=== PATIENT | male | born 1970 | race Hispanic/Latino ===

== ENCOUNTER 2017-10-12 01:54 | Emergency (ER) | payer MEDICARE ==
[~2017-10-12 01:54] MED LIST: ALBU8.5H8 IH; ASPI-555 PO; DEXT30TA10 PO; DOCU100C19 PO; ELVI1TAB3 PO; ERGO500014 PO; FENO145T37 PO; FLUT1DIS3 IH; FURO20TA4 PO; INSU100I13 SQ; LEVO88TA7 PO; LISI40TA4 PO; LORA-705 PO; PANT40TA25 PO; ROSU10TA PO; SITA1TAB6 PO; SULF1TAB3 PO; TIOT4MIS5 PUFF
== END 2017-10-12 02:37 | disposition home or self-care (01) ==
LOC: EDH 01:54
DX: E11.65 Type 2 diabetes mellitus with hyperglycemia (principal); J44.9 Chronic obstructive pulmonary disease, unspecified; Z21 Asymptomatic human immunodeficiency virus [HIV] infection status
CPT/HCPCS: 82948

== ENCOUNTER 2018-06-30 13:05 | Emergency (ER) | payer MEDICARE ==
[~2018-06-30 13:05] MED LIST changes: +DOCU-282 PO; -DOCU100C19 PO
[2018-06-30] MEDS ORDERED: HYOSCYAMINE SULFATE 0.125 MG TAB.SUBL SL ONE (13:51)
[2018-06-30] MEDS ORDERED: SODIUM CHLORIDE 0.9% 1000ML 1,000 ML IV ONE (13:51)
[2018-06-30] MEDS ORDERED: ONDANSETRON HCL 4 MG/2 ML VIAL ONE (13:51)
[2018-06-30] MEDS ORDERED: MORPHINE SULFATE 4 MG/1ML SYG ONE (13:52)
[2018-06-30 13:55] LABS: BASOPHILS % (AUTO) 0.5 % (0.0-5.0); EOSINOPHILS % (AUTO) 5.1 % (0.0-8.0); LYMPHOCYTES % (AUTO) 26.4 % (21.0-51.0); MEAN CORPUSCULAR HEMOGLOBIN 28.6 pg (27.0-33.0); MEAN CORPUSCULAR HGB CONC 32.7 g/dL (32.0-36.0); MEAN CORPUSCULAR VOLUME 87.3 fL (79-99); MONOCYTES % (AUTO) 8.3 % (3.0-13.0); NEUTROPHILS % (AUTO) 59.7 % (40.0-77.0); PLATELET COUNT (AUTO) 233 K/uL (130-400); RED BLOOD CELL COUNT(AUTO) 5.04 MIL/uL (4.50-6.20); RED CELL DISTRIBUTION WIDTH 14.4 % (11.0-15.5); WHITE BLOOD COUNT (AUTO) 10.4 K/uL (4.8-10.8)
[2018-06-30 14:01] LABS: CREATININE 1.1 mg/dL (0.5-1.5); POTASSIUM 5.1 mmol/L (3.5-5.1)
[2018-06-30 14:05] LABS: ALBUMIN 4.6 g/dL (3.5-5.0); BILIRUBIN,TOTAL 0.9 mg/dL (0.2-1.0); TOTAL PROTEIN, SERUM 9.2 g/dL (6.0-8.3)
[2018-06-30 14:24] LABS: APPEARANCE,URINE Clear (CLEAR); BILIRUBIN,URINE Negative (NEGATIVE); COLOR,URINE Dark Yellow (YELLOW); GLUCOSE, URINE (UA) Negative (NEGATIVE); KETONES,URINE Trace mg/dL (NEGATIVE); LEUKOCYTE ESTERASE ,URINE Negative (NEGATIVE); NITRATE,URINE Negative (NEGATIVE); OCCULT BLOOD,URINE Negative (NEGATIVE); PROTEIN,URINE Negative (NEGATIVE)
[2018-06-30 14:32] LABS: AMPHET/METH SCREEN,URINE NEGATIVE (NEGATIVE); BARBITURATE SCREEN, URINE NEGATIVE (NEGATIVE); BENZODIAZEPINES SCREEN,URINE POSITIVE (NEGATIVE); CANNABINOID SCREEN,URINE NEGATIVE (NEGATIVE); COCAINE SCREEN,URINE POSITIVE (NEGATIVE); OPIATE SCREEN,URINE NEGATIVE (NEGATIVE); PHENCYCLIDINE SCREEN,URINE NEGATIVE (NEGATIVE)
== END 2018-06-30 18:00 | disposition home or self-care (01) ==
LOC: EDH 13:05
DX: R11.2 Nausea with vomiting, unspecified (principal); R19.7 Diarrhea, unspecified; F14.10 Cocaine abuse, uncomplicated; J45.909 Unspecified asthma, uncomplicated; J44.9 Chronic obstructive pulmonary disease, unspecified; E11.9 Type 2 diabetes mellitus without complications; Z72.0 Tobacco use; Z21 Asymptomatic human immunodeficiency virus [HIV] infection status
CPT/HCPCS: 36415; 80053; 80305; 81003; 82270; 83690; 85025; 87046; 87205; 87324; 96361; 96374; 96375; 99285; J2270; J2405; J7030

== ENCOUNTER 2023-10-27 00:23 | Emergency (ER) | payer OTHER, MEDICARE ==
[~2023-10-27] VITALS: Ht 177.8 cm; Wt 85.7 kg
[~2023-10-27 00:23] MED LIST changes: +ASPI-1443 PO; -ASPI-555 PO; +ASPI-556 PO; +ATOR40TA69 PO; +CETI10TA57 PO; +CLOP75TA32 PO; +ERGO500093 PO; +FENO145T26 PO; -FENO145T37 PO; +FERR-72 PO; +FLUT1BLS3 IH; +FOLI0.8C PO; +FURO40TA5 PO; -LISI40TA4 PO; +LISI40TA9 PO; +LORA-699 PO; -LORA-705 PO; +MECO10005 PO; +METO25TA6 PO; -PANT40TA25 PO; +PANT40TA54 PO; -ROSU10TA PO; +ROSU10TA22 PO
[2023-10-27 01:04] LABS: BASOPHILS # (AUTO) 0.02 K/uL (0.00-0.20); BASOPHILS % (AUTO) 0.3 % (0.0-5.0); EOSINOPHILS # (AUTO) 0.18 K/uL (0.00-0.70); EOSINOPHILS % (AUTO) 2.5 % (0.0-8.0); HEMATOCRIT 34.6 % (42-54); IMMATURE GRANULOCYTE ABSOLUTE 0.02 K/uL (0-1); LYMPHOCYTES # (AUTO) 2.2 K/uL (1.0-4.8); LYMPHOCYTES % (AUTO) 31.3 % (21.0-51.0); MEAN CORPUSCULAR HEMOGLOBIN 29.2 pg (27.0-33.0); MEAN CORPUSCULAR HGB CONC 33.8 g/dL (32.0-36.0); MEAN CORPUSCULAR VOLUME 86.3 fL (79-99); MONOCYTES # (AUTO) 0.4 K/uL (0.1-1.0); MONOCYTES % (AUTO) 6.1 % (3.0-13.0); NEUTROPHILS # (AUTO) 4.2 K/uL (1.8-7.7); NEUTROPHILS % (AUTO) 59.5 % (40.0-77.0); PLATELET COUNT (AUTO) 141 K/uL (130-400); RED BLOOD CELL COUNT(AUTO) 4.01 MIL/uL (4.50-6.20); RED CELL DISTRIBUTION WIDTH 14.4 % (11.0-15.5); WHITE BLOOD COUNT (AUTO) 7.1 K/uL (4.8-10.8)
[2023-10-27 01:14] LABS: CARBON DIOXIDE 23 mmol/L (21-32); CHLORIDE 106 mmol/L (101-111); CREATININE 1.2 mg/dL (0.5-1.5); GLOMERULAR FILTR. RATE CALC 73 mL/min (>90); GLUCOSE,RANDOM 86 mg/dL (70-105); POTASSIUM 3.7 mmol/L (3.5-5.1); SODIUM SERUM 142 mmol/L (136-145); UREA NITROGEN, BLOOD 12 mg/dL (7-18)
[2023-10-27 01:18] LABS: ALANINE AMINOTRANSFERASE 15 U/L (12-78); AMMONIA 17 umol/L (11-32); ASPARTATE AMINOTRANSFERASE 9 U/L (10-37); BILIRUBIN,TOTAL 0.6 mg/dL (0.2-1.0); TOTAL PROTEIN, SERUM 6.3 g/dL (6.0-8.3)
[2023-10-27 01:22] LABS: ALCOHOL, BLOOD < 3 mg/dL (0-10)
[2023-10-27 03:26] VITALS: BP 116/68; PULSE 68; RESP 17; O2SAT 98
[2023-10-27 03:37] LABS: AMPHET/METH SCREEN,URINE NEGATIVE (NEGATIVE); BARBITURATE SCREEN, URINE NEGATIVE (NEGATIVE); BENZODIAZEPINES SCREEN,URINE NEGATIVE (NEGATIVE); CANNABINOID SCREEN,URINE NEGATIVE (NEGATIVE); COCAINE SCREEN,URINE NEGATIVE (NEGATIVE); OPIATE SCREEN,URINE NEGATIVE (NEGATIVE); PHENCYCLIDINE SCREEN,URINE NEGATIVE (NEGATIVE)
== END 2023-10-27 04:06 | disposition home or self-care (01) ==
LOC: EDH 00:23
DX: R55 Syncope and collapse (principal); I10 Essential (primary) hypertension; E11.9 Type 2 diabetes mellitus without complications; F41.9 Anxiety disorder, unspecified; F03.90 Unspecified dementia, unspecified severity, without behavioral disturbance, psychotic disturbance, mood disturbance, and anxiety; Z79.82 Long term (current) use of aspirin; Z79.899 Other long term (current) drug therapy; W18.39XA Other fall on same level, initial encounter; Y93.89 Activity, other specified; Y92.89 Other specified places as the place of occurrence of the external cause; Y99.8 Other external cause status
CPT/HCPCS: 36415; 70450; 80053; 80305; 82140; 84484; 85025; 93005

== ENCOUNTER 2023-11-13 10:27 | Emergency (ER) | payer OTHER, MEDICARE ==
[~2023-11-13] VITALS: Ht 165.1 cm; Wt 72.6 kg
[2023-11-13 10:50] LABS: BASOPHILS # (AUTO) 0.03 K/uL (0.00-0.20); BASOPHILS % (AUTO) 0.5 % (0.0-5.0); EOSINOPHILS # (AUTO) 0.15 K/uL (0.00-0.70); EOSINOPHILS % (AUTO) 2.3 % (0.0-8.0); HEMATOCRIT 35.3 % (42-54); IMMATURE GRANULOCYTE ABSOLUTE 0.02 K/uL (0-1); LYMPHOCYTES # (AUTO) 2.3 K/uL (1.0-4.8); LYMPHOCYTES % (AUTO) 34.8 % (21.0-51.0); MEAN CORPUSCULAR HEMOGLOBIN 29.2 pg (27.0-33.0); MEAN CORPUSCULAR HGB CONC 33.4 g/dL (32.0-36.0); MEAN CORPUSCULAR VOLUME 87.4 fL (79-99); MONOCYTES # (AUTO) 0.4 K/uL (0.1-1.0); MONOCYTES % (AUTO) 6.5 % (3.0-13.0); NEUTROPHILS # (AUTO) 3.6 K/uL (1.8-7.7); NEUTROPHILS % (AUTO) 55.6 % (40.0-77.0); PLATELET COUNT (AUTO) 134 K/uL (130-400); RED BLOOD CELL COUNT(AUTO) 4.04 MIL/uL (4.50-6.20); RED CELL DISTRIBUTION WIDTH 14.4 % (11.0-15.5); WHITE BLOOD COUNT (AUTO) 6.5 K/uL (4.8-10.8)
[2023-11-13 10:53] LABS: CREATININE 1.3 mg/dL (0.5-1.5); POTASSIUM 3.9 mmol/L (3.5-5.1)
[2023-11-13 11:25] LABS: RAPID GROUP A STREP negative (NEGATIVE)
[2023-11-13 11:35] LABS: COVID19 (SARS ANTIGEN RAPID) PRESUMPTIVE NEGATIVE (NEGATIVE); INFLUENZA TYPE A Negative For Type A (NEGATIVE); INFLUENZA TYPE B Negative For Type B (NEGATIVE)
[2023-11-13 11:40] LABS: APPEARANCE,URINE CLEAR (CLEAR); BILIRUBIN,URINE NEGATIVE (NEGATIVE); COLOR,URINE YELLOW (YELLOW); GLUCOSE, URINE (UA) NEGATIVE (NEGATIVE); KETONES,URINE 10 mg/dL (NEGATIVE); LEUKOCYTE ESTERASE ,URINE NEGATIVE Leu/uL (NEGATIVE); NITRATE,URINE NEGATIVE (NEGATIVE); OCCULT BLOOD,URINE NEGATIVE (NEGATIVE); PROTEIN,URINE NEGATIVE (NEGATIVE); UROBILINOGEN,URINE 3 mg/dL (0.2-1.0)
[2023-11-13 11:42] LABS: ADD UA MICROSCOPIC YES
[2023-11-13] MEDS: M.V.I. IV [ADULT] 10 ML, FOLIC ACID 1 MG, THIAMINE HCL 100 MG in 0.9%NACL 1000ML 1,000 ML IV ONE (11:45)
[2023-11-13 11:48] LABS: MUCUS,URINE RARE LPF (None Seen); SQUAMOUS EPITHELIAL CELL,UR RARE /HPF (0-2); WBC,URINE 0-1 /HPF (0-1)
[2023-11-13 14:33] VITALS: BP 125/75; PULSE 74; RESP 16; O2SAT 100
== END 2023-11-13 14:30 | disposition home or self-care (01) ==
LOC: EDH 10:27
DX: R53.1 Weakness (principal); Z20.822 Contact with and (suspected) exposure to COVID-19; Z79.82 Long term (current) use of aspirin; Z79.84 Long term (current) use of oral hypoglycemic drugs; Z79.899 Other long term (current) drug therapy; Z98.890 Other specified postprocedural states
CPT/HCPCS: 99285; 96365; 70450; 71045; 96366; 87426; 82550; 80048; 85025; 87880; 87420; 87804 ×2; 83605; 81001; 36415; J7030; J3411; J3490

== ENCOUNTER 2024-03-31 05:35 | Emergency (ER) | payer OTHER, MEDICARE ==
[~2024-03-31] VITALS: Ht 167.6 cm; Wt 80.3 kg
[2024-03-31] MEDS: LIDOCAINE HCL 2% VISCOUS 15 ML UDCUP PO ONE (05:56)
[2024-03-31] MEDS: PANTOPRAZOLE 40 MG/VIAL IVP ONE (05:56)
[2024-03-31] MEDS: ONDANSETRON 4MG INJ IVP ONE (05:57)
[2024-03-31] MEDS: LACTATED RINGERS 1000ML 1,000 ML IV ONE (05:58)
[2024-03-31] MEDS: MAG/ALUM/SIMETH 30 ML UDCUP PO ONE (05:58)
[2024-03-31 06:01] LABS: BASOPHILS # (AUTO) 0.03 K/uL (0.00-0.20); BASOPHILS % (AUTO) 0.2 % (0.0-5.0); EOSINOPHILS # (AUTO) 0.45 K/uL (0.00-0.70); EOSINOPHILS % (AUTO) 3.7 % (0.0-8.0); HEMATOCRIT 35.3 % (42-54); IMMATURE GRANULOCYTE ABSOLUTE 0.04 K/uL (0-1); LYMPHOCYTES # (AUTO) 2.7 K/uL (1.0-4.8); LYMPHOCYTES % (AUTO) 22.2 % (21.0-51.0); MEAN CORPUSCULAR HEMOGLOBIN 25.8 pg (27.0-33.0); MEAN CORPUSCULAR HGB CONC 31.4 g/dL (32.0-36.0); MEAN CORPUSCULAR VOLUME 82.1 fL (79-99); MONOCYTES # (AUTO) 0.8 K/uL (0.1-1.0); MONOCYTES % (AUTO) 6.1 % (3.0-13.0); NEUTROPHILS # (AUTO) 8.2 K/uL (1.8-7.7); NEUTROPHILS % (AUTO) 67.5 % (40.0-77.0); PLATELET COUNT (AUTO) 188 K/uL (130-400); RED CELL DISTRIBUTION WIDTH 16.4 % (11.0-15.5); WHITE BLOOD COUNT (AUTO) 12.2 K/uL (4.8-10.8)
[2024-03-31 06:11] LABS: POTASSIUM 3.7 mmol/L (3.5-5.1)
[2024-03-31 06:25] LABS: ALBUMIN 2.5 g/dL (3.5-5.0); BILIRUBIN,TOTAL 0.2 mg/dL (0.2-1.0); TOTAL PROTEIN, SERUM 6.3 g/dL (6.0-8.3)
[2024-03-31 08:17] LABS: APPEARANCE,URINE CLEAR (CLEAR); BILIRUBIN,URINE NEGATIVE (NEGATIVE); COLOR,URINE LIGHT-YELLOW (YELLOW); GLUCOSE, URINE (UA) NEGATIVE (NEGATIVE); KETONES,URINE NEGATIVE (NEGATIVE); LEUKOCYTE ESTERASE ,URINE NEGATIVE Leu/uL (NEGATIVE); NITRATE,URINE NEGATIVE (NEGATIVE); OCCULT BLOOD,URINE NEGATIVE (NEGATIVE); PH,URINE 6.5 (5.0-8.0); PROTEIN,URINE NEGATIVE (NEGATIVE)
[2024-03-31 08:18] LABS: AMPHET/METH SCREEN,URINE NEGATIVE (NEGATIVE); BARBITURATE SCREEN, URINE NEGATIVE (NEGATIVE); BENZODIAZEPINES SCREEN,URINE NEGATIVE (NEGATIVE); CANNABINOID SCREEN,URINE NEGATIVE (NEGATIVE); COCAINE SCREEN,URINE NEGATIVE (NEGATIVE); OPIATE SCREEN,URINE NEGATIVE (NEGATIVE); PHENCYCLIDINE SCREEN,URINE NEGATIVE (NEGATIVE)
[2024-03-31 08:23] LABS: ADD UA MICROSCOPIC YES
[2024-03-31 08:24] LABS: RBC,URINE 0-1 /HPF (0-1); SQUAMOUS EPITHELIAL CELL,UR RARE /HPF (0-2)
[2024-03-31 10:48] VITALS: BP 104/71; PULSE 72; RESP 20; O2SAT 99
== END 2024-03-31 10:48 | disposition home or self-care (01) ==
LOC: EDH 05:35
DX: R53.1 Weakness (principal); E11.9 Type 2 diabetes mellitus without complications; E78.00 Pure hypercholesterolemia, unspecified; I10 Essential (primary) hypertension; Z79.02 Long term (current) use of antithrombotics/antiplatelets; Z79.51 Long term (current) use of inhaled steroids; Z79.82 Long term (current) use of aspirin; Z79.899 Other long term (current) drug therapy
CPT/HCPCS: 99285; 82550; 84484; 80053; 80305; 83690; 85025; 81001; 36415; 70450; 72125; 96374; 96375; 93005; J7120; J2405; J2470

== ENCOUNTER 2024-05-14 00:13 | Inpatient (IN) | payer OTHER, MEDICARE ==
[~2024-05-14] VITALS: Ht 160 cm; Wt 86.2 kg
[2024-05-14] VITALS (10 sets, daily range): BP systolic 120–142; BP diastolic 79–89; PULSE 76–90; RESP 16–20; O2SAT 97–100
[2024-05-14 00:46] LABS: BASOPHILS # (AUTO) 0.03 K/uL (0.00-0.20); BASOPHILS % (AUTO) 0.4 % (0.0-5.0); EOSINOPHILS # (AUTO) 0.21 K/uL (0.00-0.70); EOSINOPHILS % (AUTO) 2.8 % (0.0-8.0); HEMATOCRIT 32.7 % (42-54); IMMATURE GRANULOCYTE ABSOLUTE 0.03 K/uL (0-1); LYMPHOCYTES # (AUTO) 2.6 K/uL (1.0-4.8); MEAN CORPUSCULAR HEMOGLOBIN 26.9 pg (27.0-33.0); MEAN CORPUSCULAR HGB CONC 32.1 g/dL (32.0-36.0); MEAN CORPUSCULAR VOLUME 83.8 fL (79-99); MONOCYTES # (AUTO) 0.6 K/uL (0.1-1.0); MONOCYTES % (AUTO) 7.7 % (3.0-13.0); NEUTROPHILS % (AUTO) 53.7 % (40.0-77.0); PLATELET COUNT (AUTO) 185 K/uL (130-400); RED CELL DISTRIBUTION WIDTH 18.3 % (11.0-15.5); WHITE BLOOD COUNT (AUTO) 7.5 K/uL (4.8-10.8)
[2024-05-14 01:02] LABS: CREATININE 1.1 mg/dL (0.5-1.3); POTASSIUM 3.3 mmol/L (3.5-5.1)
[2024-05-14 01:12] LABS: ALBUMIN 2.5 g/dL (3.5-5.0); BILIRUBIN,DIRECT 0.1 mg/dL (0.0-0.3); BILIRUBIN,TOTAL 0.2 mg/dL (0.2-1.0); TOTAL PROTEIN, SERUM 5.8 g/dL (6.0-8.3)
[2024-05-14] MEDS: 0.9%NACL 1000ML 1,000 ML IV ONE (01:25)
[2024-05-14] MEDS: POTASSIUM BICARB/CIT AC 25 MEQ TABLET.EFF PO ONE (03:37)
[2024-05-14] MEDS: dexaMETHasone SOD PHOSPHATE 4 MG/ML 1ML VIAL IV ONE (04:23)
[2024-05-14] MEDS ORDERED: LACTATED RINGERS IV ONE (06:30)
[2024-05-14] MEDS ORDERED: acetaMINOPHEN 325 MG TAB PO PRN (07:00)
[2024-05-14] MEDS ORDERED: DiphenhydrAMINE HCL 50 MG/ML VIAL IV PRN (07:00)
[2024-05-14] MEDS ORDERED: POTASSIUM CHLORIDE 20MEQ/100ML 100 ML IV PRN (07:00)
[2024-05-14] MEDS: INSULIN humuLIN R 100 UNIT/ML 3ML SQ SCH (07:30)
[2024-05-14 07:37] LABS: HEMOGLOBIN A1C 5.8 % (4.0-6.0)
[2024-05-14] MEDS: FAMOTIDINE 20MG TAB PO SCH (09:58)
[2024-05-14] MEDS: ENOXAPARIN SODIUM 40 MG/0.4 ML SYRINGE SQ SCH (09:59)
[2024-05-14] MEDS: IpraTROPium/alBUTERol SULFATE 3 ML SOLUTION IH SCH (11:18)
[2024-05-14 11:20] LABS: ADD UA MICROSCOPIC NO; APPEARANCE,URINE CLEAR (CLEAR); BILIRUBIN,URINE NEGATIVE (NEGATIVE); COLOR,URINE LIGHT-YELLOW (YELLOW); GLUCOSE, URINE (UA) NEGATIVE (NEGATIVE); KETONES,URINE NEGATIVE (NEGATIVE); LEUKOCYTE ESTERASE ,URINE NEGATIVE Leu/uL (NEGATIVE); NITRATE,URINE NEGATIVE (NEGATIVE); OCCULT BLOOD,URINE NEGATIVE (NEGATIVE); PH,URINE 7.5 (5.0-8.0); PROTEIN,URINE NEGATIVE (NEGATIVE); UROBILINOGEN,URINE 0.2 mg/dL (0.2-1.0)
[2024-05-14 11:22] LABS: AMPHET/METH SCREEN,URINE NEGATIVE (NEGATIVE); BARBITURATE SCREEN, URINE NEGATIVE (NEGATIVE); BENZODIAZEPINES SCREEN,URINE NEGATIVE (NEGATIVE); CANNABINOID SCREEN,URINE NEGATIVE (NEGATIVE); COCAINE SCREEN,URINE NEGATIVE (NEGATIVE); OPIATE SCREEN,URINE NEGATIVE (NEGATIVE); PHENCYCLIDINE SCREEN,URINE NEGATIVE (NEGATIVE)
[2024-05-14] MEDS ORDERED: TERB250T89 PO (11:54)
[2024-05-14] MEDS ORDERED: ZOLP5TAB8 PO (11:54)
[2024-05-14] MEDS ORDERED: RISP3TAB41 PO (11:54)
[2024-05-14] MEDS ORDERED: BUDE10.7 IH (11:54)
[2024-05-14] MEDS ORDERED: GABA-529 PO (11:54)
[2024-05-14] MEDS ORDERED: PRAZ1CAP5 PO (11:54)
[2024-05-14] MEDS ORDERED: OXYB10TA30 PO (11:54)
[2024-05-14] MEDS ORDERED: TOPI200T16 PO (11:54)
[2024-05-14] MEDS ORDERED: DIVA500T52 PO (11:54)
[2024-05-14] MEDS ORDERED: SEMA2PEN SQ (11:54)
[2024-05-14] MEDS ORDERED: DULO60CA64 PO (11:54)
[2024-05-14] MEDS ORDERED: BUPR-561 PO (11:54)
[2024-05-14] MEDS ORDERED: BICT1TAB PO (11:54)
[2024-05-14] MEDS: 0.9%NACL 1000ML 1,000 ML IV SCH (12:07)
[2024-05-14] MEDS ORDERED: BUDESONIDE IH SCH (13:00)
[2024-05-14] MEDS ORDERED: FORMOTEROL IH SCH (13:00)
[2024-05-14] MEDS ORDERED: PRAZOSIN HCL 1 MG PO PRN (13:00)
[2024-05-14] MEDS ORDERED: GLYCOPYR IH SCH (13:00)
[2024-05-14 14:10] LABS: HIV 1&2 ANTIBODY Preliminary Positive (Negative); HIV-1 p24 Antigen Non-Reactive (Negative)
[2024-05-14] MEDS: BUDESONIDE 0.5 MG/2 ML INH IH SCH (19:25)
[2024-05-14] MEDS: divALPRoex SOdium 250 MG TAB PO SCH (21:45)
[2024-05-14] MEDS: OXYBUTYNIN 5 MG TAB.SR.24H PO SCH (21:45)
[2024-05-14] MEDS: rispERIdone 1 MG TABLET PO SCH (21:45)
[2024-05-14] MEDS: ZOLPidem TARTrate 5 MG TAB PO SCH (21:45)
[2024-05-14] MEDS: METOPROLOL TARTRATE 25 MG TAB PO SCH (21:46)
[2024-05-14] MEDS: topIRAMate 100 MG TAB PO SCH (21:46)
[2024-05-14] MEDS: GABAPENTIN 300 MG CAPSULE PO SCH (21:46)
[2024-05-14] MEDS: ATORVASTATIN 20 MG TABLET PO SCH (21:46)
[2024-05-15] VITALS (15 sets, daily range): BP systolic 91–141; BP diastolic 60–90; PULSE 73–99; RESP 15–18; O2SAT 97–99
[2024-05-15] MEDS: MORPHINE 2 MG SYG IV PRN (00:53)
[2024-05-15 04:41] LABS: BASOPHILS # (AUTO) 0.03 K/uL (0.00-0.20); BASOPHILS % (AUTO) 0.3 % (0.0-5.0); EOSINOPHILS # (AUTO) 0.03 K/uL (0.00-0.70); EOSINOPHILS % (AUTO) 0.3 % (0.0-8.0); HEMATOCRIT 34.8 % (42-54); IMMATURE GRANULOCYTE ABSOLUTE 0.04 K/uL (0-1); LYMPHOCYTES # (AUTO) 3.2 K/uL (1.0-4.8); MEAN CORPUSCULAR HEMOGLOBIN 26.6 pg (27.0-33.0); MEAN CORPUSCULAR HGB CONC 31.9 g/dL (32.0-36.0); MEAN CORPUSCULAR VOLUME 83.5 fL (79-99); MONOCYTES # (AUTO) 0.6 K/uL (0.1-1.0); MONOCYTES % (AUTO) 6.1 % (3.0-13.0); NEUTROPHILS # (AUTO) 6.1 K/uL (1.8-7.7); NEUTROPHILS % (AUTO) 60.9 % (40.0-77.0); PLATELET COUNT (AUTO) 196 K/uL (130-400); RED BLOOD CELL COUNT(AUTO) 4.17 MIL/uL (4.50-6.20); RED CELL DISTRIBUTION WIDTH 18.4 % (11.0-15.5)
[2024-05-15 05:08] LABS: CREATININE 0.9 mg/dL (0.5-1.3); MAGNESIUM 1.5 mg/dL (1.80-2.40); PHOSPHORUS 3.7 mg/dL (2.5-4.9); POTASSIUM 3.3 mmol/L (3.5-5.1)
[2024-05-15] MEDS: MAGNESIUM 2GM PREMIX 50ML 50 ML IV PRN (05:23)
[2024-05-15] MEDS: KCL 20 MEQ ERTAB PO PRN (05:24)
[2024-05-15] MEDS: LEVOTHYROXINE 88 MCG TABLET PO SCH (06:17)
[2024-05-15] MEDS: LACTULOSE 20 GM/30 ML UDCUP PO PRN (08:03)
[2024-05-15] MEDS: TERBINAFINE HCL 250 MG TABLET PO SCH (08:03)
[2024-05-15] MEDS: buPROPion HCL 150 MG TABLET.SA PO SCH (08:05)
[2024-05-15] MEDS: FOLIC ACID 1 MG PO SCH (08:09)
[2024-05-15] MEDS: [UNRECOGNIZED DRUG - OTHER] PO SCH (08:10)
[2024-05-15] MEDS: [UNRECOGNIZED DRUG - OTHER] IH SCH (08:12)
[2024-05-15] MEDS: SALMETEROL IH SCH (08:12)
[2024-05-15] MEDS: FLUTICASONE IH SCH (08:12)
[2024-05-15] MEDS: DULOXETINE 120 MG PO SCH (08:13)
[2024-05-15] MEDS ORDERED: SEMA2PEN SQ (08:58)
[2024-05-15] MEDS ORDERED: D-ME118S56 PO (08:58)
[2024-05-15 15:15] LABS: ABSOLUTE CD4 COUNT 302 /uL (359-1519); LYMPHS % FOR CD4 COUNT 18 % (Not Estab.); PERCENT CD4 CELLS 30.2 % (30.8-58.5); WBC FOR CD4 COUNT 5.6 x10E3/uL (3.4-10.8)
[2024-05-16] VITALS (58 sets, daily range): BP systolic 82–131; BP diastolic 34–84; PULSE 64–124; RESP 11–30; O2SAT 94–99
[2024-05-16] MEDS: guaiFENesin-coDEINE-DM 200/20 MG 10 ML PO PRN (03:29)
[2024-05-16 05:42] LABS: BASOPHILS # (AUTO) 0.03 K/uL (0.00-0.20); BASOPHILS % (AUTO) 0.3 % (0.0-5.0); EOSINOPHILS # (AUTO) 0.05 K/uL (0.00-0.70); EOSINOPHILS % (AUTO) 0.4 % (0.0-8.0); HEMATOCRIT 35.9 % (42-54); IMMATURE GRANULOCYTE ABSOLUTE 0.04 K/uL (0-1); LYMPHOCYTES # (AUTO) 2.4 K/uL (1.0-4.8); MEAN CORPUSCULAR HEMOGLOBIN 26.4 pg (27.0-33.0); MEAN CORPUSCULAR HGB CONC 31.5 g/dL (32.0-36.0); MEAN CORPUSCULAR VOLUME 83.9 fL (79-99); MONOCYTES # (AUTO) 0.4 K/uL (0.1-1.0); MONOCYTES % (AUTO) 3.2 % (3.0-13.0); NEUTROPHILS # (AUTO) 9.1 K/uL (1.8-7.7); NEUTROPHILS % (AUTO) 75.8 % (40.0-77.0); PLATELET COUNT (AUTO) 174 K/uL (130-400); RED BLOOD CELL COUNT(AUTO) 4.28 MIL/uL (4.50-6.20); RED CELL DISTRIBUTION WIDTH 19.3 % (11.0-15.5)
[2024-05-16 06:11] LABS: CREATININE 1.1 mg/dL (0.5-1.3); MAGNESIUM 1.8 mg/dL (1.80-2.40); POTASSIUM 3.9 mmol/L (3.5-5.1)
[2024-05-16] MEDS: FOLic ACID 1 MG TABLET PO SCH (09:40)
[2024-05-16] MEDS ORDERED: mecliZINE HCL 12.5 MG TABLET PO PRN (12:00)
[2024-05-16] MEDS: MIDODRINE HCL 5 MG TABLET PO ONE (12:55)
[2024-05-16 13:13] LABS: HIV SCREEN 4TH GENERATION Preliminary Reactive (Non Reactive)
[2024-05-16 14:04] LABS: BASOPHILS # (AUTO) 0.03 K/uL (0.00-0.20); BASOPHILS % (AUTO) 0.2 % (0.0-5.0); EOSINOPHILS # (AUTO) 0.01 K/uL (0.00-0.70); EOSINOPHILS % (AUTO) 0.1 % (0.0-8.0); HEMATOCRIT 33.2 % (42-54); LYMPHOCYTES # (AUTO) 1.7 K/uL (1.0-4.8); LYMPHOCYTES % (AUTO) 10.5 % (21.0-51.0); MEAN CORPUSCULAR HEMOGLOBIN 26.3 pg (27.0-33.0); MEAN CORPUSCULAR VOLUME 84.7 fL (79-99); MONOCYTES # (AUTO) 1.5 K/uL (0.1-1.0); MONOCYTES % (AUTO) 9.5 % (3.0-13.0); NEUTROPHILS # (AUTO) 12.5 K/uL (1.8-7.7); NEUTROPHILS % (AUTO) 79.1 % (40.0-77.0); PLATELET COUNT (AUTO) 167 K/uL (130-400); RED BLOOD CELL COUNT(AUTO) 3.92 MIL/uL (4.50-6.20); RED CELL DISTRIBUTION WIDTH 19.7 % (11.0-15.5); WHITE BLOOD COUNT (AUTO) 15.8 K/uL (4.8-10.8)
[2024-05-16 14:15] LABS: CREATININE 1.3 mg/dL (0.5-1.3); POTASSIUM 4.3 mmol/L (3.5-5.1)
[2024-05-16 14:22] LABS: B-TYPE NATRIURETIC PEPTIDE 20 pg/mL (0-100)
[2024-05-16 14:26] LABS: ALBUMIN 2.4 g/dL (3.5-5.0); BILIRUBIN,TOTAL 0.5 mg/dL (0.2-1.0); TOTAL PROTEIN, SERUM 5.5 g/dL (6.0-8.3)
[2024-05-16] MEDS: cefTRIAXone 1G VIAL IVPB SCH (14:58)
[2024-05-16] MEDS ORDERED: NOREPINEPHRIN 4MG/NS 250ML 250 ML IV SCH (15:30)
[2024-05-16] MEDS: 0.9%NACL 1000ML 1,707 ML IV SCH (15:30)
[2024-05-16] MEDS: DOXYCYCLINE 100MG+NS 250ML 250 ML IV SCH (15:59)
[2024-05-16] MEDS ORDERED: TEST100V11 IM (16:39)
[2024-05-16] MEDS: 0.9%NACL 1000ML 1,000 ML IV SCH (18:48)
[2024-05-16 19:01] LABS: ABG BASE EXCESS -4.1 mmol/L (-2.0-3.0); ABG HCO3 19.3 mmol/L (21.0-28.0); ABG OXYGEN SATURATION 94.6 % (94.0-98.0); ABG PCO2 30 mmHg (35-48); CARBON MONOXIDE 0.4 % (0.5-1.5); HHb 5.4; PO2, ARTERIAL BG 72.2 mmHg (83.0-108.0); VENT MODE, BG RA (ROOM AIR)
[2024-05-16] MEDS: ZOSYN 3.375GM +NS 50ML IV SCH (22:05)
[2024-05-17] VITALS (44 sets, daily range): BP systolic 99–156; BP diastolic 59–85; PULSE 79–92; RESP 17–30; O2SAT 95–100
[2024-05-17 04:13] LABS: BASOPHILS # (AUTO) 0.02 K/uL (0.00-0.20); BASOPHILS % (AUTO) 0.1 % (0.0-5.0); EOSINOPHILS # (AUTO) 0.06 K/uL (0.00-0.70); EOSINOPHILS % (AUTO) 0.3 % (0.0-8.0); HEMATOCRIT 32.5 % (42-54); IMMATURE GRANULOCYTE ABSOLUTE 0.13 K/uL (0-1); LYMPHOCYTES # (AUTO) 2.2 K/uL (1.0-4.8); MEAN CORPUSCULAR HEMOGLOBIN 26.4 pg (27.0-33.0); MEAN CORPUSCULAR HGB CONC 31.1 g/dL (32.0-36.0); MEAN CORPUSCULAR VOLUME 85.1 fL (79-99); MONOCYTES # (AUTO) 1.3 K/uL (0.1-1.0); MONOCYTES % (AUTO) 6.8 % (3.0-13.0); NEUTROPHILS # (AUTO) 14.8 K/uL (1.8-7.7); NEUTROPHILS % (AUTO) 80.1 % (40.0-77.0); PLATELET COUNT (AUTO) 149 K/uL (130-400); RED BLOOD CELL COUNT(AUTO) 3.82 MIL/uL (4.50-6.20); RED CELL DISTRIBUTION WIDTH 19.6 % (11.0-15.5); WHITE BLOOD COUNT (AUTO) 18.4 K/uL (4.8-10.8)
[2024-05-17 05:06] LABS: ALBUMIN 2.3 g/dL (3.5-5.0); BILIRUBIN,TOTAL 0.7 mg/dL (0.2-1.0); CREATININE 0.8 mg/dL (0.5-1.3); POTASSIUM 3.7 mmol/L (3.5-5.1); TOTAL PROTEIN, SERUM 5.6 g/dL (6.0-8.3)
[2024-05-17 05:43] LABS: SARS-CoV-2, RNA, NAAT NEGATIVE SARS CoV-2 (NEGATIVE)
[2024-05-17 05:53] LABS: INFLUENZA TYPE A Negative For Type A (NEGATIVE); INFLUENZA TYPE B Negative For Type B (NEGATIVE)
[2024-05-17] MEDS: SODIUM CHLORIDE 3% FOR INHALATION 4 ML/AMP VIAL.NEB IH ONE ×2 (06:40→11:31)
[2024-05-17] MEDS: POTASSIUM CHLORIDE 10% ELIXIR 20 MEQ/15 ML UDCUP PO PRN (06:53)
[2024-05-17] MEDS: NICOTINE 14 MG/ 24 HR PATCH TD SCH (10:11)
[2024-05-17] MEDS: COSYNTROPIN 0.25 MG IVP ONE (13:24)
[2024-05-17] MEDS: 0.9%NACL 1000ML 1,000 ML IV SCH (16:11)
[2024-05-17] MEDS: ONDANSETRON 4MG INJ IV PRN (21:09)
[2024-05-17] MEDS: hydrOXYzine 25 MG TABLET PO PRN (21:16)
[2024-05-18] VITALS (16 sets, daily range): BP systolic 90–116; BP diastolic 63–78; PULSE 57–86; RESP 16–24; O2SAT 96–99
[2024-05-18 04:06] LABS: BASOPHILS # (AUTO) 0.02 K/uL (0.00-0.20); BASOPHILS % (AUTO) 0.1 % (0.0-5.0); EOSINOPHILS % (AUTO) 0.7 % (0.0-8.0); HEMATOCRIT 30.6 % (42-54); LYMPHOCYTES % (AUTO) 14.1 % (21.0-51.0); MEAN CORPUSCULAR HEMOGLOBIN 26.7 pg (27.0-33.0); MEAN CORPUSCULAR HGB CONC 31.4 g/dL (32.0-36.0); MEAN CORPUSCULAR VOLUME 85.2 fL (79-99); MONOCYTES # (AUTO) 0.8 K/uL (0.1-1.0); MONOCYTES % (AUTO) 5.8 % (3.0-13.0); NEUTROPHILS # (AUTO) 11.2 K/uL (1.8-7.7); NEUTROPHILS % (AUTO) 78.6 % (40.0-77.0); PLATELET COUNT (AUTO) 140 K/uL (130-400); RED BLOOD CELL COUNT(AUTO) 3.59 MIL/uL (4.50-6.20); RED CELL DISTRIBUTION WIDTH 19.4 % (11.0-15.5); WHITE BLOOD COUNT (AUTO) 14.2 K/uL (4.8-10.8)
[2024-05-18 04:32] LABS: ALBUMIN 2.3 g/dL (3.5-5.0); BILIRUBIN,TOTAL 0.6 mg/dL (0.2-1.0); CREATININE 0.9 mg/dL (0.5-1.3); POTASSIUM 3.7 mmol/L (3.5-5.1); TOTAL PROTEIN, SERUM 5.8 g/dL (6.0-8.3)
[2024-05-19] VITALS (14 sets, daily range): BP systolic 99–117; BP diastolic 61–84; PULSE 61–84; RESP 16–21; O2SAT 93–98
[2024-05-19 05:00] LABS: HEMATOCRIT 32.9 % (42-54); MEAN CORPUSCULAR HEMOGLOBIN 26.9 pg (27.0-33.0); MEAN CORPUSCULAR HGB CONC 31.6 g/dL (32.0-36.0); MEAN CORPUSCULAR VOLUME 85.2 fL (79-99); RED BLOOD CELL COUNT(AUTO) 3.86 MIL/uL (4.50-6.20); RED CELL DISTRIBUTION WIDTH 19.4 % (11.0-15.5); WHITE BLOOD COUNT (AUTO) 11.8 K/uL (4.8-10.8)
[2024-05-19 05:22] LABS: ALBUMIN 2.3 g/dL (3.5-5.0); BILIRUBIN,TOTAL 0.5 mg/dL (0.2-1.0); MAGNESIUM 1.7 mg/dL (1.80-2.40); POTASSIUM 4.1 mmol/L (3.5-5.1)
[2024-05-19] MEDS ORDERED: sulfaMETHOX-TMP DS 800/160 TAB PO SCH (21:00)
[2024-05-20] VITALS (13 sets, daily range): BP systolic 108–126; BP diastolic 64–86; PULSE 71–80; RESP 18–19; O2SAT 97–99
[2024-05-20] MEDS: acetaMINOPHEN 325 MG TAB PO PRN (09:54)
[2024-05-20] MEDS ORDERED: IBUPROFEN 200 MG TAB PO PRN (13:00)
[2024-05-20] MEDS: KETOROLAC 15MG/ML VIAL (15MG/ML) IV ONE (13:17)
== END 2024-05-20 19:30 | DRG 637 ==
LOC: EDH 00:13 → EDHIP 05:10 → 4CH 06:38 → 2BH 05-16 15:15 → 2DH 05-18 01:37 → 3CH 05-18 22:08
PROVIDERS: ADMIT Internal Medicine; ATTEND Internal Medicine
DX: E11.649 Type 2 diabetes mellitus with hypoglycemia without coma (principal); A41.9 Sepsis, unspecified organism; G93.41 Metabolic encephalopathy; J96.01 Acute respiratory failure with hypoxia; J18.9 Pneumonia, unspecified organism; R65.21 Severe sepsis with septic shock; E87.20 Acidosis, unspecified; J44.0 Chronic obstructive pulmonary disease with (acute) lower respiratory infection; N30.00 Acute cystitis without hematuria; I95.1 Orthostatic hypotension; Z20.822 Contact with and (suspected) exposure to COVID-19; I87.8 Other specified disorders of veins; Z21 Asymptomatic human immunodeficiency virus [HIV] infection status; E03.9 Hypothyroidism, unspecified; J44.89 Other specified chronic obstructive pulmonary disease; B96.4 Proteus (mirabilis) (morganii) as the cause of diseases classified elsewhere; E87.6 Hypokalemia; E83.51 Hypocalcemia; D64.9 Anemia, unspecified; E86.0 Dehydration; F17.210 Nicotine dependence, cigarettes, uncomplicated; E66.01 Morbid (severe) obesity due to excess calories; I10 Essential (primary) hypertension; E11.40 Type 2 diabetes mellitus with diabetic neuropathy, unspecified; N40.1 Benign prostatic hyperplasia with lower urinary tract symptoms; R33.8 Other retention of urine; K44.9 Diaphragmatic hernia without obstruction or gangrene; E78.00 Pure hypercholesterolemia, unspecified; R29.6 Repeated falls; F32.A Depression, unspecified; F41.9 Anxiety disorder, unspecified; Z79.51 Long term (current) use of inhaled steroids; Z79.82 Long term (current) use of aspirin; Z79.84 Long term (current) use of oral hypoglycemic drugs; Z91.199 Patient's noncompliance with other medical treatment and regimen due to unspecified reason; Z91.148 Patient's other noncompliance with medication regimen for other reason; Z68.33 Body mass index [BMI] 33.0-33.9, adult; Z79.4 Long term (current) use of insulin; Z81.8 Family history of other mental and behavioral disorders; Z82.3 Family history of stroke; Z82.49 Family history of ischemic heart disease and other diseases of the circulatory system; Z82.5 Family history of asthma and other chronic lower respiratory diseases; Z83.3 Family history of diabetes mellitus; Z90.3 Acquired absence of stomach [part of]; Z90.49 Acquired absence of other specified parts of digestive tract
CPT/HCPCS: 36415; 36600; 70450; 71045; 71250; 73562; 74176; 80048; 80053; 80076; 80305; 81003; 82140; 82435; 82533; 82550; 82803; 82947; 82948; 83036; 83605; 83735; 83880; 84100; 84132; 84145; 84295; 84443; 84484; 85018; 85025; 85027; 85378; 86359; 86361; 86701; 87040; 87071; 87086; 87186; 87205; 87389; 87390; 87536; 87635; 87641; 87804; 93005; 93306; 94640; 94664; 99291; G0378; J0696; J0834; J1100; J1650; J1815; J1885; J2270; J2405; J2543; J3475; J3490

== ENCOUNTER 2024-06-05 11:30 | Emergency (ER) | payer OTHER, MEDICARE ==
[~2024-06-05] VITALS: Ht 160 cm; Wt 83.9 kg
[~2024-06-05 11:30] MED LIST changes: -ASPI-1443 PO; -ASPI-556 PO; -ATOR40TA69 PO; +BICT1TAB PO; +BUDE10.7 IH; +BUPR-561 PO; -CETI10TA57 PO; -CLOP75TA32 PO; -DEXT30TA10 PO; +DIVA500T52 PO; -DOCU-282 PO; +DULO60CA64 PO; -ELVI1TAB3 PO; -ERGO500014 PO; -ERGO500093 PO; -FENO145T26 PO; -FERR-72 PO; -FLUT1DIS3 IH; -FURO20TA4 PO; -FURO40TA5 PO; +GABA-529 PO; -INSU100I13 SQ; -LISI40TA9 PO; -LORA-699 PO; -MECO10005 PO; +OXYB10TA30 PO; +PRAZ1CAP5 PO; +RISP3TAB41 PO; -SITA1TAB6 PO; -SULF1TAB3 PO; +TERB250T89 PO; -TIOT4MIS5 PUFF; +TOPI200T16 PO; +ZOLP5TAB8 PO
[2024-06-05 11:32] VITALS: BP 138/92; PULSE 100; RESP 14; TEMP 98
[2024-06-05 11:55] LABS: APPEARANCE,URINE CLEAR (CLEAR); BILIRUBIN,URINE NEGATIVE (NEGATIVE); COLOR,URINE YELLOW (YELLOW); GLUCOSE, URINE (UA) NEGATIVE (NEGATIVE); KETONES,URINE NEGATIVE (NEGATIVE); LEUKOCYTE ESTERASE ,URINE NEGATIVE Leu/uL (NEGATIVE); NITRATE,URINE NEGATIVE (NEGATIVE); OCCULT BLOOD,URINE NEGATIVE (NEGATIVE); PROTEIN,URINE 10 mg/dL (NEGATIVE)
[2024-06-05 11:58] LABS: ADD UA MICROSCOPIC NO
[2024-06-05 11:59] LABS: BACTERIA,URINE RARE /HPF (None Seen); MUCUS,URINE RARE LPF (None Seen); SQUAMOUS EPITHELIAL CELL,UR RARE /HPF (0-2)
[2024-06-05] MEDS ORDERED: PHEN-776 PO (12:05)
[2024-06-05] MEDS: acetaMINOPHEN 500 MG TABLET PO ONE (12:16)
== END 2024-06-05 12:33 | disposition home or self-care (01) ==
LOC: EDH 11:30
DX: R30.0 Dysuria (principal); E11.9 Type 2 diabetes mellitus without complications; E78.00 Pure hypercholesterolemia, unspecified; J45.909 Unspecified asthma, uncomplicated; I10 Essential (primary) hypertension; E03.9 Hypothyroidism, unspecified; Z79.899 Other long term (current) drug therapy
CPT/HCPCS: 81003